=== PATIENT | female | born 1960 ===

== ENCOUNTER → 2024-08-11 14:17 | Outpatient (REF) | payer BC, SELFPAY | LOC: DHSLP 14:17 | PROVIDERS: ATTENDING PHYSICIAN Internal Medicine Cardiovascular Disease; FAMILY PHYSICIAN Internal Medicine | DX: G47.30 Sleep apnea, unspecified (principal); R06.83 Snoring | CPT/HCPCS: 95800 ==

== ENCOUNTER → 2025-04-17 22:00 | Outpatient (REF) | payer BC, SELFPAY | LOC: DHSLP 22:00 | PROVIDERS: ATTENDING PHYSICIAN Internal Medicine Cardiovascular Disease; FAMILY PHYSICIAN Nurse Practitioner Family | DX: G47.00 Insomnia, unspecified (principal); R06.83 Snoring; G47.8 Other sleep disorders | CPT/HCPCS: 95810 ==